=== PATIENT | female | born 1935 ===

== ENCOUNTER 2018-06-01 11:40 | Emergency (ER) | payer MEDICARE, OTHER ==
[2018-06-01 11:40] VITALS: BMI 27.4
[2018-06-01 11:48] VITALS: RESP 16; O2SAT 99
[2018-06-01 12:13] LABS: SQUAMOUS EPITHIAL 2 /hpf (0-5); URINE BILIRUBIN NEGATIVE (NEGATIVE); URINE BLOOD SMALL (NEGATIVE); URINE CLARITY SLIGHTY-CLOUDY (Clear); URINE COLOR YELLOW (YELLOW); URINE GLUCOSE (UA) NEG (NEGATIVE); URINE LEUKOCYTE ESTERASE SMALL Leu/uL (Negative); URINE PROTEIN NEGATIVE (NEGATIVE); URINE UROBILINOGEN 0.2-1.0 mg/dL (0.2-1.0)
--- NOTE | 2018-06-01 12:16 | ED PDOC ---
HPI: Female Pain Time Seen by Provider: 06/01/18 11:54 Chief Complaint (Nursing): Female Genitourinary Chief Complaint (Provider): Female Genitourinary History Per: Patient History/Exam Limitations: no limitations Onset/Duration Of Symptoms: Days Current Symptoms Are (Timing): Still Present Quality Of Discomfort: Other (fullness) Additional Complaint(s): 82 year old female with arthritis presents to the ED for an evaluation of UTI onset for a long time. Patient states her bladder feels full and she had frequency and burning sensation last night. Also reports she has been on medication for 3 months without any relief. Otherwise, she denies fever, shortness of breath, nausea, diarrhea, vaginal bleeding or any other symptoms. She did not take any medication prior to arrival. 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), Diabetes, Hypercholesterolemia, Hyperlipidemia, Osteoporosis Denies: Chronic Kidney Disease - Surgical History Surgical History: Cholecystectomy, Endoscopy - Family History Family History: States: Unknown Family Hx - Social History Current smoker - smoking cessation education provided: No Alcohol: None Drugs: Denies - Immunization History Hx Influenza Vaccination: Yes Hx Pneumococcal Vaccination: Yes - Home Medications Home Medications: Ambulatory Orders Medication Instructions Recorded Atorvastatin [Lipitor] 1 tab PO HS 09/05/15 metFORMIN [glucOPHAGE] 1 tab PO DAILY 09/05/15 Nitrofurantoin Macrocrystals 100 mg PO BID #10 cap 11/03/17 [Macrobid] Nitrofurantoin Macrocrystals 100 mg PO BID #10 cap 06/01/18 [Macrobid] - Allergies Allergies/Adverse Reactions: Allergies Allergy/AdvReac Type Severity Reaction Status Date / Time No Known Allergies Allergy Verified 09/05/15 23:14 Review of Systems ROS Statement: Except As Marked, All Systems Reviewed And Found Negative Constitutional: Negative for: Fever Cardiovascular: Negative for: Chest Pain Respiratory: Negative for: Shortness of Breath Gastrointestinal: Negative for: Nausea, Diarrhea Genitourinary Female: Positive for: Dysuria, Frequency. Negative for: Incontinence, Vaginal Discharge, Vaginal Bleeding Physical Exam - Reviewed Nursing Documentation Reviewed: Yes Vital Signs Reviewed: Yes - Physical Exam Appears: Positive for: Well, Non-toxic, No Acute Distress Head Exam: Positive for: ATRAUMATIC, NORMAL INSPECTION, NORMOCEPHALIC Skin: Positive for: Normal Color, Warm, Dry. Negative for: Rash Eye Exam: Positive for: EOMI, Normal appearance, PERRL ENT: Positive for: Normal ENT Inspection Neck: Positive for: Normal, Painless ROM, Supple Cardiovascular/Chest: Positive for: Regular Rate, Rhythm. Negative for: Murmur Respiratory: Positive for: Normal Breath Sounds. Negative for: Respiratory Distress Gastrointestinal/Abdominal: Positive for: Normal Exam, Soft, Other (no fullness ). Negative for: Tenderness Back: Positive for: Normal Inspection Extremity: Positive for: Normal ROM. Negative for: Tenderness, Pedal Edema, Deformity Neurological/Psych: Positive for: Awake, Alert, Normal Tone, Oriented (x3) - Laboratory Results Urine dip results: Positive for: Leukocyte Esterase - ECG O2 Sat by Pulse Oximetry: 99 Medical Decision Making Medical Decision Making: Time: 11:57 Impression: UTI Plan: ED urine dipstick Urine C&S UA Reevaluation Urine dip results present trace of leukocyte esterase Scribe Attestation: Documented by Sabas Montalvo, acting as a scribe for Helga Crockett MD Provider Scribe Attestation: All medical record entries made by the Scribe were at my direction and personally dictated by me. I have reviewed the chart and agree that the record accurately reflects my personal performance of the history, physical exam, medical decision making, and the department course for this patient. I have also personally directed, reviewed, and agree with the discharge instructions and disposition. Disposition - Clinical Impression Clinical Impression: Dysuria - Patient ED Disposition Is Patient to be Admitted: No Doctor Will See Patient In The: Office Counseled Patient/Family Regarding: Diagnosis, Need For Followup, Rx Given - Disposition Referrals: Austin Garcia MD [Staff Provider] - Disposition: Routine/Home Disposition Time: 12:30 Condition: STABLE Prescriptions: Nitrofurantoin Macrocrystals [Macrobid] 100 mg PO BID #10 cap Instructions: Dysuria, Adult (DC) Forms: [employer] (Angolan) - POA Present On Arrival: None
[2018-06-01 12:57] VITALS: BP 122/71; PULSE 78; TEMP 98
== END 2018-06-01 12:57 | disposition home or self-care (01) ==
LOC: H.ER 11:40
DX: R30.0 Dysuria (principal)